=== PATIENT | male | born 1940 | race Caucasian/White ===

== ENCOUNTER → 2016-07-08 | Outpatient (CLI) | payer MEDICARE | END | disposition home or self-care (01) | LOC: BFHH 09:20 | PROVIDERS: ATTEND Family Medicine | DX: R26.2 Difficulty in walking, not elsewhere classified (principal) ==

== ENCOUNTER → 2016-07-22 | Outpatient (CLI) | payer MEDICARE | END | disposition home or self-care (01) | LOC: BFHH 08:48 | PROVIDERS: ATTEND Family Medicine | DX: E11.9 Type 2 diabetes mellitus without complications (principal); E78.4 Other hyperlipidemia; D64.9 Anemia, unspecified; I10 Essential (primary) hypertension; D50.9 Iron deficiency anemia, unspecified ==

== ENCOUNTER → 2016-07-22 | Outpatient (CLI) | payer MEDICARE | END | disposition home or self-care (01) | LOC: BFHH 14:23 | PROVIDERS: ATTEND Family Medicine | DX: D64.9 Anemia, unspecified (principal) ==

== ENCOUNTER → 2016-09-10 | Outpatient (CLI) | payer MEDICARE, OTHER | END | disposition home or self-care (01) | LOC: GMAM 14:39 | PROVIDERS: ATTEND Family Medicine | DX: D50.8 Other iron deficiency anemias (principal); E53.8 Deficiency of other specified B group vitamins ==

== ENCOUNTER → 2016-10-28 | Outpatient (CLI) | payer OTHER | LOC: BFHH 09:23 | PROVIDERS: ATTEND Family Medicine | DX: E11.9 Type 2 diabetes mellitus without complications (principal); I10 Essential (primary) hypertension; D50.8 Other iron deficiency anemias; E78.2 Mixed hyperlipidemia ==

== ENCOUNTER → 2016-12-27 | Outpatient (CLI) | payer OTHER | END | disposition home or self-care (01) | LOC: BFHH 13:01 | PROVIDERS: ATTEND Internal Medicine Hematology & Oncology | DX: D50.8 Other iron deficiency anemias (principal); I10 Essential (primary) hypertension ==

== ENCOUNTER → 2017-02-28 | Outpatient (CLI) | payer OTHER | END | disposition home or self-care (01) | LOC: BFHH 10:48 | PROVIDERS: ATTEND Family Medicine | DX: J44.9 Chronic obstructive pulmonary disease, unspecified (principal); G91.2 (Idiopathic) normal pressure hydrocephalus; R26.2 Difficulty in walking, not elsewhere classified; R41.2 Retrograde amnesia; I10 Essential (primary) hypertension; E11.9 Type 2 diabetes mellitus without complications; Z12.5 Encounter for screening for malignant neoplasm of prostate ==

== ENCOUNTER → 2017-03-03 | Outpatient (CLI) | payer OTHER | END | disposition home or self-care (01) | LOC: GMAM 15:53 | PROVIDERS: ATTEND Family Medicine | DX: R94.6 Abnormal results of thyroid function studies (principal) ==

== ENCOUNTER → 2017-06-09 | Outpatient (CLI) | payer OTHER | LOC: GMAM 10:45 | PROVIDERS: ATTEND Family Medicine | DX: D50.9 Iron deficiency anemia, unspecified (principal) ==

== ENCOUNTER → 2017-06-27 | Outpatient (CLI) | payer OTHER ==
--- NOTE | 2017-06-28 09:20 | MRI ---
EXAM DESCRIPTION: Brain w/o contrast: MRI. CLINICAL HISTORY: R41.2 R26.2. Retrograde amnesia. Difficulty in walking. COMPARISON: MRI scan of the brain without contrast 04/22/2016. TECHNIQUE: Multiplanar, high-field MRI unit, multiple diffusion sequences, multiple conventional sequences without contrast. FINDINGS: Again noted is dilation of the lateral ventricles and the third ventricle and normal size of the fourth ventricle. Temporal horns of the lateral ventricles are not significantly dilated relative to the remainder of the lateral ventricles. Stable since the prior study. Minimal prominence of the basilar cisterns and cerebellar folia stable since the prior study. No effacement of the cortical sulci. No midline shift. Bilateral multiple foci of bright FLAIR and T2-weighted signal in the periventricular white matter and huerta-white matter junctions of the cerebral hemispheres. . Small foci of bright signal in the bilateral thalami. Normal signal in the bilateral basal ganglia. No hemorrhage, no cerebral edema, no mass-effect. Normal signal in the brainstem and cerebellar hemispheres. No hemorrhage, no cerebral edema, no mass-effect. Concordance of the diffusion and non-diffusion sequences with no diffusion restriction. No midline shift. No extra-axial hemorrhage. Normal flow signal void in the major vessels of the [place], and the venous sinuses. IACs are symmetric bilaterally. Normal signal in the bilateral mastoid air cells. No mass effect in the bilateral cerebellopontine angles. Pituitary gland occupies most of the sella. Base of the cerebellar tonsils is above the foramen magnum. Minimal mucosal periosteal thickening in the paranasal sinuses. Possible metallic object causing magnetic distortion of the frontal bone overlying the right frontal sinus. No change since the prior study. Otherwise, the bony calvarium is intact. IMPRESSION: 1. Nonobstructive hydrocephalus is stable since the prior study April 2016. Temporal horns of the lateral ventricles are not abnormally distended. Fourth ventricle is normal size. No hemorrhage or periventricular cerebral edema. No midline shift. 2. Periventricular and central cortical white matter multiple foci. Most likely related to cerebral microvascular disease. Stable since the prior study. Minimal cortical atrophy is also stable. 3. Noncontrast MRI diffusion study showing no evidence of acute or subacute infarction. Electronically signed by: Justen Small MD 06/28/2017 9:20 AM [employer] Workstation: [id number]
== END ==
LOC: MRI 09:02
PROVIDERS: ATTEND Psychiatry & Neurology Neurology
DX: R41.2 Retrograde amnesia (principal); R26.2 Difficulty in walking, not elsewhere classified; G91.9 Hydrocephalus, unspecified

== ENCOUNTER → 2017-09-18 | Outpatient (CLI) | payer OTHER | LOC: GMAM 09:16 | PROVIDERS: ATTEND Family Medicine | DX: I10 Essential (primary) hypertension (principal); E11.40 Type 2 diabetes mellitus with diabetic neuropathy, unspecified; E78.2 Mixed hyperlipidemia ==

== ENCOUNTER → 2017-10-30 | Outpatient (CLI) | payer OTHER | LOC: BFHH 11:30 | PROVIDERS: ATTEND Internal Medicine Hematology & Oncology | DX: I11.0 Hypertensive heart disease with heart failure (principal); D50.8 Other iron deficiency anemias ==

== ENCOUNTER → 2017-11-06 | Outpatient (CLI) | payer OTHER | LOC: BFHH 16:00 | PROVIDERS: ATTEND Family Medicine | DX: I11.0 Hypertensive heart disease with heart failure (principal); D50.8 Other iron deficiency anemias; E11.42 Type 2 diabetes mellitus with diabetic polyneuropathy ==

== ENCOUNTER → 2017-12-04 | Outpatient (CLI) | payer OTHER | LOC: BFHH 12:39 | PROVIDERS: ATTEND Family Medicine | DX: D50.8 Other iron deficiency anemias (principal); I11.0 Hypertensive heart disease with heart failure; I50.9 Heart failure, unspecified ==

== ENCOUNTER → 2017-12-11 | Outpatient (CLI) | payer OTHER ==
--- NOTE | 2017-12-11 12:11 | US ---
EXAM DESCRIPTION: Venous,Upper Extremity RT CLINICAL HISTORY: 76 years Male, PAIN IN RIGHT FOREARM COMPARISON: None. TECHNIQUE: 2-D grayscale and color venous duplex Doppler evaluation of the right upper extremity is performed. FINDINGS: Normal vascular flow and phasicity is seen in the right internal jugular vein. Right subclavian vein is somewhat small, but patent. Normal vascular flow and compressibility of the right axillary, brachial, basilic, cephalic, radial, and ulnar veins is seen without ultrasound evidence of venous thrombosis. IMPRESSION: No ultrasound evidence of venous thrombosis of the right upper extremity. Electronically signed by: Luis Lee MD 12/11/2017 12:10 PM CDT
== END ==
LOC: US 10:28
PROVIDERS: ATTEND Nurse Practitioner Family
DX: M79.631 Pain in right forearm (principal)

== ENCOUNTER → 2017-12-15 | Outpatient (CLI) | payer OTHER | LOC: GMAM 15:25 | PROVIDERS: ATTEND Family Medicine | DX: L03.119 Cellulitis of unspecified part of limb (principal); E87.6 Hypokalemia ==

== ENCOUNTER → 2017-12-16 | Outpatient (CLI) | payer OTHER | LOC: GMAM 17:18 | PROVIDERS: ATTEND Family Medicine | DX: L03.119 Cellulitis of unspecified part of limb (principal) ==

== ENCOUNTER 2018-01-08 10:45 | Outpatient (CLI) | payer OTHER | END 2018-01-09 23:59 | LOC: GMAM 10:45 → EDSTATUS 11:16 → GMAM 01-09 11:16 | PROVIDERS: ATTEND Family Medicine | DX: D50.8 Other iron deficiency anemias (principal); I13.0 Hypertensive heart and chronic kidney disease with heart failure and stage 1 through stage 4 chronic kidney disease, or unspecified chronic kidney disease; E11.42 Type 2 diabetes mellitus with diabetic polyneuropathy; N18.9 Chronic kidney disease, unspecified ==

== ENCOUNTER → 2018-01-28 | Outpatient (CLI) | payer OTHER | LOC: BFHH 14:30 | PROVIDERS: ATTEND Family Medicine | DX: N18.9 Chronic kidney disease, unspecified (principal); I13.0 Hypertensive heart and chronic kidney disease with heart failure and stage 1 through stage 4 chronic kidney disease, or unspecified chronic kidney disease; E87.6 Hypokalemia ==

== ENCOUNTER → 2018-04-06 | Outpatient (CLI) | payer OTHER | LOC: BFHH 17:58 | PROVIDERS: ATTEND Internal Medicine Hematology & Oncology | DX: D50.8 Other iron deficiency anemias (principal) ==

== ENCOUNTER → 2018-04-30 | Outpatient (CLI) | payer OTHER | LOC: BFHH 08:41 | PROVIDERS: ATTEND Family Medicine | DX: I13.0 Hypertensive heart and chronic kidney disease with heart failure and stage 1 through stage 4 chronic kidney disease, or unspecified chronic kidney disease (principal); E11.22 Type 2 diabetes mellitus with diabetic chronic kidney disease ==

== ENCOUNTER → 2018-08-06 | Outpatient (CLI) | payer OTHER | LOC: GMAM 14:55 | PROVIDERS: ATTEND Family Medicine | DX: E87.6 Hypokalemia (principal) ==

== ENCOUNTER → 2019-04-20 | Outpatient (CLI) | payer OTHER | LOC: GMAM 10:47 | PROVIDERS: ATTEND Family Medicine | DX: Z12.5 Encounter for screening for malignant neoplasm of prostate (principal) ==

== ENCOUNTER → 2019-06-28 | Outpatient (CLI) | payer OTHER | LOC: LAB.O 09:05 | DX: D50.9 Iron deficiency anemia, unspecified (principal); R94.5 Abnormal results of liver function studies; K75.0 Abscess of liver; Z86.19 Personal history of other infectious and parasitic diseases; Z86.010 Personal history of colon polyps ==

== ENCOUNTER → 2019-08-31 | Outpatient (CLI) | payer OTHER | LOC: GMAM 11:33 | PROVIDERS: ATTEND Family Medicine | DX: E53.8 Deficiency of other specified B group vitamins (principal); E55.9 Vitamin D deficiency, unspecified; I10 Essential (primary) hypertension; E11.9 Type 2 diabetes mellitus without complications; E78.2 Mixed hyperlipidemia ==

== ENCOUNTER → 2019-09-09 | Outpatient (CLI) | payer OTHER | LOC: GMAM 16:24 | PROVIDERS: ATTEND Family Medicine | DX: E53.8 Deficiency of other specified B group vitamins (principal); D50.9 Iron deficiency anemia, unspecified ==

== ENCOUNTER → 2019-09-15 | Outpatient (CLI) | payer OTHER ==
--- NOTE | 2019-09-15 15:23 | MRI ---
EXAM DESCRIPTION: Shoulder,Right CLINICAL HISTORY: 78 years, Male, PAIN IN RIGHT SHOULDER COMPARISON: Shoulder radiograph 09/09/2019 TECHNIQUE: MRI of the right shoulder was performed with multiplanar multi sequence imaging without intravenous contrast. FINDINGS: Rotator tendons: Supraspinatus tendon full-thickness, complete tear with medial tendon retraction to the level lateral acromion (approximately 4-5 cm from the humeral head attachment). Infraspinatus tendon full-thickness tear involving the anterior half insertional and critical zone fibers with high-grade interstitial delamination extending to the posterior myotendinous junction. Subscapularis moderate tendinosis with tendon thickening and interstitial fissuring. Mild teres minor tendon is interstitial fissuring. Rotator muscles: Supraspinatus, infraspinatus, and subscapularis intermediate grade (grade 2-3 fatty muscle atrophy). Glenoid labrum: Moderate circumferential degenerative tearing of the glenoid labrum is most pronounced along the inferior anterior labrum. Anterior chondral labral separation (series 301 image nine). Acromion: The acromion morphology is type two. Appearance of acromioclavicular joint chronic separation with increased intracapsular signal and disruption of the inferior joint capsule and acromioclavicular ligament. Bone and joints: Moderate glenohumeral joint osteoarthrosis with small areas of full-thickness cartilage loss involving the inferior humeral head anterior glenoid. Small marginal osteophyte formation. No focal bone marrow contusion or fracture. Biceps tendon: Expected course of the biceps tendon long head within the bicipital groove. There is moderate to severe degeneration and tendinosis of the intra-articular biceps long head. The biceps labral anchor appears degenerated but intact. Soft tissues: No solid or cystic mass is seen. IMPRESSION: 1. Supraspinatus tendon full-thickness, complete tear with medial tendon retraction by approximately 4-5 cm. 2. Infraspinatus tendon full-thickness tear involving the anterior half insertional fibers with interstitial delamination extending posteriorly towards the myotendinous junction. 3. Subscapularis moderate tendinosis and interstitial fissuring. 4. Intermediate grade rotator muscle atrophy. 5. Severe degenerative tearing of the glenoid labrum. 6. Appearance of chronic acromioclavicular joint separation with partial joint capsular disruption. 7. Moderate glenohumeral joint osteoarthrosis with areas of full-thickness cartilage loss. 8. Moderate to severe intra-articular biceps tendinosis/degeneration. Electronically signed by: Carmine Dowell DO 09/15/2019 3:21 PM CDT
== END ==
LOC: MRI 13:11
PROVIDERS: ATTEND Family Medicine
DX: S46.011A Strain of muscle(s) and tendon(s) of the rotator cuff of right shoulder, initial encounter (principal); S43.101A Unspecified dislocation of right acromioclavicular joint, initial encounter; M19.011 Primary osteoarthritis, right shoulder; M75.21 Bicipital tendinitis, right shoulder; M75.91 Shoulder lesion, unspecified, right shoulder; S43.431A Superior glenoid labrum lesion of right shoulder, initial encounter; M62.511 Muscle wasting and atrophy, not elsewhere classified, right shoulder

== ENCOUNTER → 2019-11-11 | Outpatient (CLI) | payer OTHER | LOC: GMAM 14:24 | PROVIDERS: ATTEND Family Medicine | DX: D50.9 Iron deficiency anemia, unspecified (principal) ==

== ENCOUNTER → 2020-01-31 | Outpatient (CLI) | payer OTHER | LOC: GMAM 10:44 | PROVIDERS: ATTEND Family Medicine | DX: D50.9 Iron deficiency anemia, unspecified (principal); E53.8 Deficiency of other specified B group vitamins; E55.9 Vitamin D deficiency, unspecified; I10 Essential (primary) hypertension; E11.9 Type 2 diabetes mellitus without complications; E78.2 Mixed hyperlipidemia; E83.42 Hypomagnesemia ==

== ENCOUNTER → 2020-02-04 | Outpatient (CLI) | payer OTHER ==
--- NOTE | 2020-02-07 08:00 | RAD ---
EXAM DESCRIPTION: Ribs,Left 3 Views (accession [id number]), Ribs,Right 3 Views (accession [id number]) CLINICAL HISTORY: 79 years Male, PLEURODYNIA COMPARISON: None. FINDINGS: Left ribs No fracture. No bony destructive lesion. Calcified granuloma in the left upper lung. Right RIBS Bone detail films of the right ribs are obtained. No fracture. No bony destructive lesion. IMPRESSION: Negative for fracture. Electronically signed by: Yrn Ramsay MD 02/07/2020 7:58 AM CDT
--- NOTE | 2020-02-07 08:01 | RAD ---
EXAM DESCRIPTION: Ribs,Left 3 Views (accession [id number]), Ribs,Right 3 Views (accession [id number]) CLINICAL HISTORY: 79 years Male, PLEURODYNIA COMPARISON: None. FINDINGS: Left ribs No fracture. No bony destructive lesion. Calcified granuloma in the left upper lung. Right RIBS Bone detail films of the right ribs are obtained. No fracture. No bony destructive lesion. IMPRESSION: Negative for fracture. Electronically signed by: Yrn Ramsay MD 02/07/2020 7:58 AM CDT
== END ==
LOC: RAD 11:56
PROVIDERS: ATTEND Nurse Practitioner Family
DX: R07.81 Pleurodynia (principal)

== ENCOUNTER → 2020-04-04 | Outpatient (CLI) | payer OTHER | LOC: LAB.O 15:40 | PROVIDERS: ATTEND Internal Medicine Hematology & Oncology | DX: D64.9 Anemia, unspecified (principal); D50.9 Iron deficiency anemia, unspecified ==

== ENCOUNTER → 2020-04-18 | Outpatient (CLI) | payer OTHER | LOC: LAB.O 11:14 | PROVIDERS: ATTEND Internal Medicine Hematology & Oncology | DX: D64.9 Anemia, unspecified (principal); D50.9 Iron deficiency anemia, unspecified ==

== ENCOUNTER → 2020-05-19 | Outpatient (CLI) | payer OTHER ==
[~2020-05-19] MED LIST: ACETAMINOPHEN 325 MG TAB PO ONE; FAMOTIDINE IV PREMIX 20 MG in PREMIX BAG 1 BAG IVPB ONE; IRON DEXTRAN 500 MG in SODIUM CHLORIDE 0.9% 500ML 500 ML IVPB ONE
== END ==
LOC: INFRM 09:38
PROVIDERS: ATTEND Internal Medicine Hematology & Oncology
DX: D64.9 Anemia, unspecified (principal)

== ENCOUNTER → 2020-06-05 | Outpatient (CLI) | payer OTHER, MEDICARE | LOC: BFHH 11:09 | PROVIDERS: ATTEND Family Medicine | DX: E11.9 Type 2 diabetes mellitus without complications (principal); E78.2 Mixed hyperlipidemia; G91.0 Communicating hydrocephalus; M62.81 Muscle weakness (generalized) ==